=== PATIENT | male | born 1960 | race Caucasian/White ===

== ENCOUNTER 2024-01-21 11:13 | Emergency (ER) | payer OTHER ==
[~2024-01-21] VITALS: Ht 177.8 cm; Wt 77.3 kg
[2024-01-21 13:50] LABS: BASO # 0.1 10^3/uL (0.0-0.2); BASO % 0.8 % (0.0-1.0); EOS # 0.2 10^3/uL (0.0-0.5); EOS % 2.3 % (0.0-3.0); HEMATOCRIT 28.3 % (42.0-52.0); HEMOGLOBIN 9.8 g/dl (13.5-17.5); LYMPH # 0.8 10^3/uL (1.5-5.0); LYMPH % 13.1 % (24.0-44.0); MEAN CORPUSCULAR HEMOGLOBIN 36.3 pg (27.0-33.0); MEAN CORPUSCULAR HGB CONC 34.6 g/dl (32.0-36.5); MEAN CORPUSCULAR VOLUME 104.8 fl (80.0-96.0); MONO # 0.7 10^3/uL (0.0-0.8); MONO % 11.1 % (2.0-8.0); NEUTROPHILS # 4.6 10^3/uL (1.5-8.5); NEUTROPHILS % 72.2 % (36.0-66.0); PLATELET COUNT, AUTOMATED 225 10^3/uL (150-450); WHITE BLOOD COUNT 6.4 10^3/uL (4.0-10.0)
[2024-01-21 14:07] LABS: ERYTHROCYTE SEDIMENTATION RATE 70 mm/hr (0-20)
[2024-01-21 14:16] LABS: ALBUMIN 2.9 G/DL (3.2-5.2); ALKALINE PHOSPHATASE 89 U/L (46-116); ALT/SGPT 22 U/L (7.0-40); AST/SGOT 42 U/L (<34); BILIRUBIN,TOTAL 1.7 MG/DL (0.3-1.2); BLOOD UREA NITROGEN 12 MG/DL (9-23); CALCIUM LEVEL 8.7 MG/DL (8.3-10.6); CARBON DIOXIDE LEVEL 25 MMOL/L (20-31); CHLORIDE LEVEL 105 MMOL/L (98-107); CREATININE FOR GFR 0.86 MG/DL (0.70-1.30); GLOMERULAR FILTRATION RATE > 60.0 (>49); GLUCOSE, FASTING 97 MG/DL (74-106); MAGNESIUM LEVEL 1.9 MG/DL (1.8-2.4); POTASSIUM SERUM 3.6 MMOL/L (3.5-5.1); SODIUM LEVEL 136 MMOL/L (136-145); TOTAL PROTEIN 6.4 G/DL (5.7-8.2)
[2024-01-21 14:20] LABS: FREE THYROXINE INDEX 1.5 % (1.4-3.8); T UPTAKE 38.5 % (22.5-37.0); THYROID STIMULATING HORMONE 18.412 uIU/ML (0.55-4.78); THYROXINE (T4) 3.8 UG/DL (4.5-10.9)
[2024-01-21 14:21] LABS: VITAMIN B12 LEVEL 320 PG/ML (211-911)
[2024-01-21 14:30] LABS: FOLATE 13.52 NG/ML (>5.4)
[2024-01-21 15:53] LABS: AMPHETAMINES LEVEL URINE NEGATIVE (NEGATIVE); BARBITURATES URINE NEGATIVE (NEGATIVE); BENZODIAZEPINES URINE NEGATIVE (NEGATIVE); CANNABINOIDS URINE NEGATIVE (NEGATIVE); COCAINE METABOLITE URINE NEGATIVE (NEGATIVE); METHADONE URINE NEGATIVE (NEGATIVE); OPIATES URINE NEGATIVE (NEGATIVE); PHENCYCLIDINE URINE NEGATIVE (NEGATIVE)
[2024-01-21] MEDS: ACETAMINOPHEN TAB 650MG DOSE (2X325MG) PO ONE (16:22)
[2024-01-21 16:39] VITALS: BP 140/75; TEMP 98.1; O2SAT 99
[2024-01-21] MEDS ORDERED: THIA100T7 PO (16:46)
[2024-01-21] MEDS ORDERED: DOCU100C16 PO (16:46)
[2024-01-21] MEDS ORDERED: MULT-40 PO (16:46)
[2024-01-21] MEDS ORDERED: NICO1DIS12 TOP (16:46)
[2024-01-21] MEDS ORDERED: PANT40TA29 PO (16:46)
[2024-01-21] MEDS ORDERED: MIDO10TA PO (16:46)
[2024-01-21] MEDS ORDERED: POLY17PO18 PO (16:46)
[2024-01-21] MEDS ORDERED: FLOM0.4C39 PO (16:46)
[2024-01-21] MEDS ORDERED: TRAM50TA2 PO (16:46)
[2024-01-21] MEDS ORDERED: FOLI1TAB11 PO (16:46)
[2024-01-21] MEDS ORDERED: ALBU2.5V10 INH (16:46)
[2024-01-21] MEDS ORDERED: SYNT75TA PO (16:46)
[2024-01-21] MEDS ORDERED: HOME MED LIST COMPLETE! XX SCH (16:50)
[2024-01-21] MEDS ORDERED: MIRALAX *UNIT DOSE* 17GM PACKET PO PRN (18:50)
[2024-01-21] MEDS ORDERED: traMADol 50 MG TAB PO PRN (18:50)
[2024-01-21] MEDS ORDERED: ACETAMINOPHEN TAB 650MG DOSE (2X325MG) PO PRN (18:50)
[2024-01-21] MEDS ORDERED: ALBUTEROL SULFATE 2.5MG/0.5ML INH NEB SOLN INH PRN (18:50)
[2024-01-21] MEDS ORDERED: oxyCODONE 5MG TAB PO PRN (19:10)
[2024-01-21] MEDS ORDERED: MIDODRINE 5 MG TAB PO SCH (21:00)
[2024-01-21] MEDS: FUROSEMIDE 40 MG TAB PO ONE (22:25)
[2024-01-21] MEDS: DOCUSATE SODIUM 100MG CAPSULE PO SCH (22:25)
[2024-01-22] MEDS ORDERED: LEVOTHYROXINE 75MCG TABLET (0.075MG) PO SCH (06:00)
[2024-01-22] MEDS ORDERED: MIDODRINE 5 MG TAB PO SCH (08:00)
[2024-01-22] MEDS ORDERED: FOLIC ACID 1MG TAB PO SCH (09:00)
[2024-01-22] MEDS ORDERED: PANTOPRAZOLE 40MG TAB (PROTONIX) PO SCH (09:00)
[2024-01-22] MEDS ORDERED: TAMSULOSIN 0.4 MG CAP PO SCH (09:00)
[2024-01-22] MEDS ORDERED: NICOTINE 21MG/24HR 1 EA TRANSDERMAL TOP SCH (09:00)
[2024-01-22] MEDS ORDERED: THIAMINE 100 MG TAB PO SCH (09:00)
== END 2024-01-22 00:10 | disposition left against medical advice (07) ==
LOC: M ED 11:13
DX: R54 Age-related physical debility (principal); R31.9 Hematuria, unspecified; Z87.891 Personal history of nicotine dependence

== ENCOUNTER 2024-09-17 12:22 | Emergency (ER) | payer OTHER ==
[~2024-09-17] VITALS: Ht 170.2 cm; Wt 78.0 kg
[~2024-09-17 12:22] MED LIST: ALBU2.5V10 INH; DOCU100C16 PO; FOLI1TAB11 PO; MIDO10TA3 PO; MULT-40 PO; NICO1DIS12 TOP; PANT40TA29 PO; POLY17PO18 PO; SYNT75TA PO; TAMS-18 PO; THIA100T7 PO; TRAM50TA2 PO
[2024-09-17 13:41] LABS: BASO # 0.1 10^3/uL (0.0-0.2); BASO % 0.8 % (0.0-1.0); EOS # 0.1 10^3/uL (0.0-0.5); EOS % 1.1 % (0.0-3.0); HEMATOCRIT 34.9 % (42.0-52.0); HEMOGLOBIN 11.3 g/dl (13.5-17.5); LYMPH # 0.9 10^3/uL (1.5-5.0); MEAN CORPUSCULAR HEMOGLOBIN 29.5 pg (27.0-33.0); MEAN CORPUSCULAR HGB CONC 32.4 g/dl (32.0-36.5); MEAN CORPUSCULAR VOLUME 91.1 fl (80.0-96.0); NEUTROPHILS # 4.4 10^3/uL (1.5-8.5); NEUTROPHILS % 67.8 % (36.0-66.0); PLATELET COUNT, AUTOMATED 222 10^3/uL (150-450); RED BLOOD COUNT 3.83 10^6/uL (4.30-6.10); WHITE BLOOD COUNT 6.4 10^3/uL (4.0-10.0)
[2024-09-17 14:27] LABS: RSV AMPLIFICATION NEGATIVE (NEGATIVE)
[2024-09-17 14:44] LABS: INR 1.04; PROTHROMBIN TIME 13.9 SECONDS (12.5-14.5)
[2024-09-17 14:58] LABS: AMPHETAMINES LEVEL URINE NEGATIVE (NEGATIVE); BARBITURATES URINE NEGATIVE (NEGATIVE); COCAINE METABOLITE URINE NEGATIVE (NEGATIVE); METHADONE URINE NEGATIVE (NEGATIVE); OPIATES URINE NEGATIVE (NEGATIVE)
[2024-09-17 14:59] LABS: BENZODIAZEPINES URINE NEGATIVE (NEGATIVE); CANNABINOIDS URINE NEGATIVE (NEGATIVE); PHENCYCLIDINE URINE NEGATIVE (NEGATIVE)
[2024-09-17 15:00] LABS: CK-MB VALUE MASS 2.1 NG/ML (<3.6); ETHYL ALCOHOL (ETHANOL) 0.004 % (0.000-0.010)
[2024-09-17 15:02] LABS: BLOOD UREA NITROGEN 22 MG/DL (9-23); CALCIUM LEVEL 9.4 MG/DL (8.3-10.6); CARBON DIOXIDE LEVEL 24 MMOL/L (20-31); CHLORIDE LEVEL 103 MMOL/L (98-107); CPK CREATINE PHOSPHOKINASE 64 U/L (46-171); GLOMERULAR FILTRATION RATE > 90.0 (>49); GLUCOSE, FASTING 95 MG/DL (74-106); MB/CK RELATIVE INDEX 3.28 (< OR =4); SODIUM LEVEL 136 MMOL/L (136-145)
[2024-09-17 15:04] LABS: THYROID STIMULATING HORMONE 5.635 uIU/ML (0.55-4.78)
[2024-09-17 15:50] VITALS: BP 159/66; TEMP 97.3; O2SAT 99
== END 2024-09-17 16:06 | disposition home or self-care (01) ==
LOC: EDBD 12:22 → M ED 12:22
DX: R55 Syncope and collapse (principal); G93.89 Other specified disorders of brain; I51.7 Cardiomegaly; I70.0 Atherosclerosis of aorta; K21.9 Gastro-esophageal reflux disease without esophagitis; Z86.73 Personal history of transient ischemic attack (TIA), and cerebral infarction without residual deficits; F10.10 Alcohol abuse, uncomplicated; F17.200 Nicotine dependence, unspecified, uncomplicated; R91.8 Other nonspecific abnormal finding of lung field; Z79.899 Other long term (current) drug therapy

== ENCOUNTER 2024-10-08 13:10 | Outpatient (RCR) | payer MEDICARE, OTHER ==
[~2024-10-08 13:10] MED LIST changes: +ELIQ5TAB; +OLAN1TAB16 PO
== END 2024-10-22 ==
LOC: M ST 13:10
PROVIDERS: ATTEND Nurse Practitioner Family
DX: R47.1 Dysarthria and anarthria (principal); M62.81 Muscle weakness (generalized)